=== PATIENT | male | born 1965 | race Caucasian/White ===

== ENCOUNTER 2017-05-17 15:12 | Inpatient (IN) | payer OTHER ==
[~2017-05-17] VITALS: Ht 177.8 cm; Wt 111.4 kg
[2017-05-17] MEDS ORDERED: SODIUM CHLORIDE 0.9% 1,000ML IVBOLUS ONE (15:30)
[2017-05-17] MEDS ORDERED: PLEASE ENTER HEIGHT AND WEIGHT MC SCH (15:30)
[2017-05-17] MEDS ORDERED: PLEASE ENTER ALLERGIES MC SCH ×2 (15:30)
[2017-05-17] MEDS ORDERED: HYDR25TA6 PO (15:32)
[2017-05-17] MEDS ORDERED: LISI-170 PO (15:32)
[2017-05-17] MEDS ORDERED: ALLO300T80 PO (15:32)
[2017-05-17] MEDS ORDERED: AMLO5TAB4 PO (15:32)
[2017-05-17] MEDS ORDERED: LISI-468 PO (15:32)
[2017-05-17] MEDS ORDERED: ATOR40TA78 PO (15:32)
[2017-05-17] MEDS ORDERED: METF500T PO (15:32)
[2017-05-17] MEDS ORDERED: INSU100V8 SQ (15:32)
[2017-05-17 16:16] LABS: HEMATOCRIT 39.9 % (39.2-51.8); HEMOGLOBIN 13.2 g/dL (13.7-18.0); WHITE BLOOD COUNT 16.9 x10^3/uL (3.4-10)
[2017-05-17] MEDS ORDERED: HYDR-3276 PO (16:21)
[2017-05-17 16:27] LABS: BLOOD UREA NITROGEN 29 mg/dL (7-18)
[2017-05-17] MEDS ORDERED: SODIUM CHLORIDE 0.9% 1,000 ML IV SCH (16:30)
[2017-05-17] MEDS: SODIUM CHLORIDE 0.9% 1,000 ML IV SCH ×4 (16:30→21:26)
[2017-05-17 16:35] LABS: ASPARTATE AMINO TRANSFERASE 20 U/L (15-37)
[2017-05-17] MEDS: D5%-0.45NACL+KCL 20MEQ 1,000 ML IV SCH ×2 (16:44→20:56)
[2017-05-17] MEDS ORDERED: REGULAR INSULIN 62.5 UNITS in SODIUM CHLORIDE 0.9% 249.375 ML IV PRN (16:46)
[2017-05-17 16:55] LABS: PATH.CAST-FLAG NOT PRESENT; SPERM-FLAG NOT PRESENT; SRC-FLAG NOT PRESENT; XTAL-FLAG NOT PRESENT; YLC-FLAG NOT PRESENT
[2017-05-17] MEDS ORDERED: LABETALOL 5MG/ML, 20ML IVPush PRN (17:00)
[2017-05-17] MEDS ORDERED: ONDANSETRON 2MG/ML, 2ML IVPush PRN (17:00)
[2017-05-17 17:06] LABS: DIFF TOTAL CELLS COUNTED 100 CELL DIFF
[2017-05-17 17:12] LABS: LARGE PLATELETS 1+; VERIFY COUNTS? YES
[2017-05-17 17:59] LABS: IS PT STATUS REG ER OR PRE ER? NO
[2017-05-17 19:47] LABS: BLOOD UREA NITROGEN 30 mg/dL (7-18)
[2017-05-17] MEDS: ENOXAPARIN 40 MG/0.4 ML SQ SCH (20:39)
[2017-05-17] MEDS: FAMOTIDINE 20 MG/2 ML IVPush SCH (20:39)
[2017-05-17 22:41] LABS: BLOOD UREA NITROGEN 28 mg/dL (7-18)
[2017-05-17] MEDS: REGULAR INSULIN 62.5 UNITS in SODIUM CHLORIDE 0.9% 249.375 ML IV PRN (22:48)
[2017-05-17 22:51] LABS: IS PT STATUS REG ER OR PRE ER? NO
[2017-05-18 00:51] LABS: BLOOD UREA NITROGEN 29 mg/dL (7-18)
[2017-05-18] MEDS: D5%-0.45NACL+KCL 20MEQ 1,000 ML IV SCH ×3 (01:55→14:01)
[2017-05-18] MEDS: REGULAR INSULIN 62.5 UNITS in SODIUM CHLORIDE 0.9% 249.375 ML IV PRN ×5 (02:09→18:13)
[2017-05-18] MEDS: SODIUM CHLORIDE 0.9% 1,000 ML IV SCH ×2 (02:10→06:10)
[2017-05-18 04:26] VITALS: BP 86/55
[2017-05-18 04:30] LABS: BLOOD UREA NITROGEN 28 mg/dL (7-18)
[2017-05-18 04:51] LABS: ASPARTATE AMINO TRANSFERASE 22 U/L (15-37)
[2017-05-18 05:45] LABS: HEMATOCRIT 37.8 % (39.2-51.8); HEMOGLOBIN 13.1 g/dL (13.7-18.0); WHITE BLOOD COUNT 9.1 x10^3/uL (3.4-10)
[2017-05-18 06:24] LABS: DIFF TOTAL CELLS COUNTED 100 CELL DIFF
[2017-05-18 07:02] LABS: VERIFY COUNTS? YES
[2017-05-18] MEDS ORDERED: SODIUM PHOSPHATE 20 MMOL in SODIUM CHLORIDE 0.9% 500 ML IV ONE (08:00)
[2017-05-18 08:44] LABS: BLOOD UREA NITROGEN 23 mg/dL (7-18)
[2017-05-18] MEDS: FAMOTIDINE 20 MG/2 ML IVPush SCH (10:44)
[2017-05-18 12:50] LABS: BLOOD UREA NITROGEN 20 mg/dL (7-18)
[2017-05-18] MEDS: OXYcodone IR 5MG TABLET PO PRN (13:50)
[2017-05-18] MEDS ORDERED: REGULAR INSULIN 250 UNITS in SODIUM CHLORIDE 0.9% 247.5 ML IV PRN (14:00)
[2017-05-18] MEDS ORDERED: SODIUM CHLORIDE 0.9% 1,000 ML IV SCH (16:30)
[2017-05-18 16:36] LABS: BLOOD UREA NITROGEN 17 mg/dL (7-18)
[2017-05-18] MEDS: ENOXAPARIN 40 MG/0.4 ML SQ SCH (18:12)
[2017-05-18 20:45] LABS: BLOOD UREA NITROGEN 15 mg/dL (7-18)
[2017-05-19] MEDS: D5%-0.45NACL+KCL 20MEQ 1,000 ML IV SCH (00:45)
[2017-05-19] MEDS: OXYcodone IR 5MG TABLET PO PRN ×4 (00:45→22:21)
[2017-05-19] MEDS: REGULAR INSULIN 62.5 UNITS in SODIUM CHLORIDE 0.9% 249.375 ML IV PRN ×3 (00:45→15:39)
[2017-05-19 00:53] LABS: BLOOD UREA NITROGEN 13 mg/dL (7-18)
[2017-05-19 04:47] LABS: ASPARTATE AMINO TRANSFERASE 27 U/L (15-37); BLOOD UREA NITROGEN 12 mg/dL (7-18)
[2017-05-19 05:00] VITALS: BP 147/89
[2017-05-19 09:08] LABS: BLOOD UREA NITROGEN 11 mg/dL (7-18)
[2017-05-19] MEDS ORDERED: ALBUTEROL SULFATE 2.5 MG/3 ML NPPB PRN (10:00)
[2017-05-19] MEDS ORDERED: D5%-0.45NACL+KCL 20MEQ 1,000 ML IV SCH (10:00)
[2017-05-19] MEDS: FAMOTIDINE 20 MG TABLET PO SCH ×2 (10:30→21:17)
[2017-05-19] MEDS: FAMOTIDINE 20 MG/2 ML IVPush SCH (10:41)
[2017-05-19] MEDS: CALCIUM CARBONATE 500 MG TAB.CHEW PO PRN (11:07)
[2017-05-19] MEDS ORDERED: ALBUTEROL SULFATE 2.5 MG/3 ML NPPB ONE (12:00)
[2017-05-19 12:57] LABS: BLOOD UREA NITROGEN 10 mg/dL (7-18)
[2017-05-19 13:02] LABS: HEMOGLOBIN 11.6 g/dL (13.7-18.0); WHITE BLOOD COUNT 6.5 x10^3/uL (3.4-10)
[2017-05-19 13:05] LABS: DIFF TOTAL CELLS COUNTED 100 CELL DIFF
[2017-05-19 13:18] LABS: VERIFY COUNTS? YES
[2017-05-19 13:19] LABS: LARGE PLATELETS 1+
[2017-05-19] MEDS ORDERED: MAGNESIUM SULFATE PMX 4GM/100M 100 ML IV ONE (14:00)
[2017-05-19 16:49] LABS: BLOOD UREA NITROGEN 9 mg/dL (7-18)
[2017-05-19] MEDS: SODIUM BICARBONATE 8.4% 75 MEQ in DEXTROSE 5% 1,000 ML IV SCH (17:34)
[2017-05-19] MEDS: GEMFIBROZIL 600 MG TABLET PO SCH (17:34)
[2017-05-19] MEDS: ENOXAPARIN 40 MG/0.4 ML SQ SCH (17:36)
[2017-05-19 20:34] LABS: BLOOD UREA NITROGEN 7 mg/dL (7-18)
[2017-05-19] MEDS ORDERED: FAMOTIDINE 20 MG TABLET PO SCH (21:00)
[2017-05-19] MEDS: REGULAR INSULIN 125 UNITS in SODIUM CHLORIDE 0.9% 248.75 ML IV PRN (21:18)
[2017-05-19] MEDS ORDERED: POTASSIUM CHLORIDE 20 MEQ TAB.ER.PRT PO ONE (21:30)
[2017-05-20 01:43] LABS: BLOOD UREA NITROGEN 6 mg/dL (7-18)
[2017-05-20] MEDS: OXYcodone IR 5MG TABLET PO PRN ×4 (03:13→21:14)
[2017-05-20 04:00] VITALS: BP 141/80
[2017-05-20 04:18] LABS: HEMATOCRIT 31.5 % (39.2-51.8); HEMOGLOBIN 10.5 g/dL (13.7-18.0); WHITE BLOOD COUNT 6.7 x10^3/uL (3.4-10)
[2017-05-20 04:31] LABS: ASPARTATE AMINO TRANSFERASE 32 U/L (15-37); BLOOD UREA NITROGEN 6 mg/dL (7-18)
[2017-05-20] MEDS ORDERED: POTASSIUM PHOSPHATE 44 MEQ in SODIUM CHLORIDE 0.9% 500 ML IV ONE (06:00)
[2017-05-20] MEDS: SODIUM BICARBONATE 8.4% 75 MEQ in DEXTROSE 5% 1,000 ML IV SCH (07:43)
[2017-05-20] MEDS: GEMFIBROZIL 600 MG TABLET PO SCH ×2 (08:11→16:48)
[2017-05-20] MEDS: FAMOTIDINE 20 MG TABLET PO SCH ×2 (11:02→21:14)
[2017-05-20] MEDS: CALCIUM CARBONATE 500 MG TAB.CHEW PO PRN (11:02)
[2017-05-20] MEDS: REGULAR INSULIN 125 UNITS in SODIUM CHLORIDE 0.9% 248.75 ML IV PRN (12:20)
[2017-05-20] MEDS: ENOXAPARIN 40 MG/0.4 ML SQ SCH (16:48)
[2017-05-20 17:27] LABS: BLOOD UREA NITROGEN 7 mg/dL (7-18)
[2017-05-20] MEDS ORDERED: INSULIN DETEMIR 100 UNITS/ML, PEN SQ-INSULIN SCH (19:00)
[2017-05-20] MEDS ORDERED: DEXTROSE 50%, 50ML SYRINGE IVPush PRN (22:30)
[2017-05-20] MEDS ORDERED: DEXTROSE 4 GM TAB.CHEW PO PRN (22:30)
[2017-05-20] MEDS ORDERED: GLUCAGON 1 MG IM PRN (22:30)
[2017-05-20] MEDS: INSULIN ASPART 100 UNITS/ML, PEN SQ-INSULIN SCH (22:41)
[2017-05-21] MEDS: OXYcodone IR 5MG TABLET PO PRN ×2 (02:27→09:01)
[2017-05-21] MEDS: INSULIN ASPART 100 UNITS/ML, PEN SQ-INSULIN SCH ×3 (02:33→10:39)
[2017-05-21 04:24] LABS: HEMATOCRIT 30.3 % (39.2-51.8); HEMOGLOBIN 10.2 g/dL (13.7-18.0); WHITE BLOOD COUNT 10.1 x10^3/uL (3.4-10)
[2017-05-21 04:32] LABS: ASPARTATE AMINO TRANSFERASE 20 U/L (15-37); BLOOD UREA NITROGEN 8 mg/dL (7-18)
[2017-05-21 05:00] VITALS: BP 136/92
[2017-05-21] MEDS: SODIUM CHLORIDE FLUSH 10ML SYR IVF SCH ×2 (06:24→09:00)
[2017-05-21] MEDS ORDERED: INSU100V8 SQ (07:43)
[2017-05-21] MEDS ORDERED: GEMF600T3 PO (07:43)
[2017-05-21] MEDS: FAMOTIDINE 20 MG TABLET PO SCH (09:00)
[2017-05-21] MEDS: CALCIUM CARBONATE 500 MG TAB.CHEW PO PRN (09:00)
[2017-05-21] MEDS: GEMFIBROZIL 600 MG TABLET PO SCH (09:00)
[2017-05-21] MEDS ORDERED: INSULIN DETEMIR 100 UNITS/ML, PEN SQ-INSULIN SCH (19:00)
== END 2017-05-21 13:12 | disposition home or self-care (01) | DRG 438 ==
LOC: ED 16:43 → EDIP 16:44 → ED 17:14 → CCU 17:57 → DCLOUNGE 05-21 13:00
PROVIDERS: ADMIT Internal Medicine; ATTEND Internal Medicine
DX: K85.90 Acute pancreatitis without necrosis or infection, unspecified (principal); E11.11 Type 2 diabetes mellitus with ketoacidosis with coma; E43 Unspecified severe protein-calorie malnutrition; N17.0 Acute kidney failure with tubular necrosis; G93.41 Metabolic encephalopathy; E87.1 Hypo-osmolality and hyponatremia; E87.8 Other disorders of electrolyte and fluid balance, not elsewhere classified; E87.5 Hyperkalemia; G89.29 Other chronic pain; E78.5 Hyperlipidemia, unspecified; M10.9 Gout, unspecified; I10 Essential (primary) hypertension; E78.1 Pure hyperglyceridemia; M19.90 Unspecified osteoarthritis, unspecified site; Z82.49 Family history of ischemic heart disease and other diseases of the circulatory system; Z87.891 Personal history of nicotine dependence; Z68.35 Body mass index [BMI] 35.0-35.9, adult
CPT/HCPCS: 36415; 70450; 71010; 80048; 80053; 80061; 81001; 82010; 82040; 82140; 82803; 82947; 82962; 83036; 83690; 83735; 84100; 84443; 84478; 84484; 85025; 87040; 87081; 93005; 93306; 94640; 96365; J1650; J1815; J7070; J7613; J3475; J3480; J7030; J7040; J7050; S0028